=== PATIENT | female | born 1980 | race Caucasian/White ===

== ENCOUNTER 2021-04-23 00:15 | Day surgery (SDC) | payer OTHER, SELFPAY ==
[2021-04-14 14:19] VITALS: BMI 26.6
--- NOTE | 2021-04-22 10:08 | P.PNAN_ITS ---
Anes - Initial Pre Proc Eval Procedure: Operation Date: 04/23/21 10:00 Proposed Procedures p Bilateral Breast Reduction - Raymond Vera MD Date/Time: 04/22/21 10:09 Surgeon: Raymond Vera MD Pre Op Diagnosis: macromastia Patient Data Age: 40 Gender: F Height: 1.75 m Weight: 82 kg Allergies Allergy/AdvReac Type Severity Reaction Status Date / Time Sulfa (Sulfonamide Allergy Rash Verified 04/23/21 08:36 Antibiotics) Home Medications Medication Instructions Recorded Confirmed Type levothyroxine 50 mcg capsule 50 mcg PO DAILY 09/24/20 04/14/21 History docusate sodium 100 mg capsule 100 mg PO BID #14 cap 04/13/21 04/14/21 Rx hydrocodone 5 mg-acetaminophen 325 1 tablet PO Q6H PRN #15 tablet 04/13/21 04/14/21 Rx mg tablet ondansetron HCl 4 mg tablet 4 mg PO Q6H PRN #30 tablet 04/13/21 04/14/21 Rx Patient hx anesthesia problems: none Family hx anesthesia problems: none Results Review: All pre-operative results and documents have been reviewed as p art of the pre-operative evaluation. [facility] Past Medical History Medical History (Updated 04/22/21 @ 10:09 by Francisco Gann DO) Hypothyroidism Surgical History Surgical History (Updated 04/22/21 @ 10:09 by Francisco Gann DO) History of cholecystectomy History of knee surgery history of ACL and MCL repair History of lumpectomy History of partial hysterectomy Family History Family History Father Carcinoma of colon Social History Social History Smoking status: Never smoker Alcohol intake: never Substance use: never Living arrangements: with family Spiritual care concerns: No Anes - Eval Final PreProcedure Day of Procedure 04/22/21 10:09 Patient weight: overweight Heart: regular rate and rhythm Lungs: clear to auscultation and normal air movement Airway: Mallampati scale class II Neurological: alert and oriented Last oral intake: >/= 8 hours ASA classification: II Emergent: no Anesthetic plan: proceed Anesthesia type and monitoring: general LMA and standard monitoring Results Review: All pre-operative results and documents have been reviewed as part of the pre-operative evaluation. Informed Consent: The patient's anesthetic plan and its attendant risks and benefits were discussed with the patient/family/POA. Questions were solicited and answers provided to the satisfaction of the patient/family/POA.
[2021-04-23] VITALS (14 sets, daily range): BP systolic 109–136; BP diastolic 55–74; PULSE 62–89; RESP 10–20; TEMP 36.2–36.3; O2SAT 94–100
--- NOTE | 2021-04-23 09:01 | WPDHPUPDATE1 ---
History and Physical Update Update Date/Time: 04/23/21 09:01 History and Physical has been reviewed, including an updated exam of the patient. There are NO changes in the patient's condition. Risks, benefits, and alternatives have been discussed and questions answered. Patient agrees to proceed with procedure.
[2021-04-23] MEDS: LACTATED RINGERS 1,000 ML 30 ML IV CONT (09:10)
--- NOTE | 2021-04-23 09:16 | P.OP_ITS ---
Procedure Note - Detailed Date of Procedure 04/23/21 Pre-op Diagnosis macromastia Post-op Diagnosis same Procedure Performed Bilateral Reduction Mammaplasty Surgeon Raymond Vera MD Anesthesia general Findings Superior pedicle Inverted T Tissue removed: Right - 443 grams Left - 496 grams Description of Procedure She is here today for bilateral breast reduction. Previously and again today the risks, benefits, alternatives were discussed in extensive detail. I wanted her to be very realistic about the risks involved as well as expectations. We discussed aftercare and what to monitor for. She understands we can never guarantee final breast size and there will always be asymmetry. I was very upfront and honest about the risks of sensation change and even nipple loss (). Made sure answered all of her questions to her satisfaction today and consent was obtained. She was marked in the preoperative holding area with their verification. The patient was taken to the operating room placed supine on the operating table. Anesthesia was provided by anesthesiology. She was prepped and draped in a standard sterile fashion. A surgical time-out was taken. Stab incisions were made and I tumessed with a tumescent solution. I marked out the nipple-areolar complex at 42 mm. I then de-epithelialized the pedicle. The pedicle was well left well more than 2 cm in thickness. I then removed the inferior portion of the breast as well as the central keel to get shape based on preoperative planning. At this point copiously irrigated with saline solution and verified a strict hemostasis. I reapproximated the pillars using a 2-0 PDS. I tailor tacked the breast into place with margaret. She was placed in a sitting position. I verified the nipple-areolar complex position based on preoperative markings, intraoperative measurements, and ob servation which were in full agreement. This nipple-areolar complex was marked at 42 mm in size. I then placed supine and de-epithelialized this. Nipple- areolar complex was inset with 3-0 Monocryl. I closed IMF deep with 1 strattafix. I closed the vertical incision with 3-0 Monocryl in the IMF with 3- 0 stratafix. Then everything was closed using a running subcuticular 4-0 Monocryl followed by Steri-Strips. A dressing was placed followed by surgical bra. Patient was awoke and taken to PACU without difficulty. All instrument sponge counts were correct at the end of the case. Estimated Blood Loss 35 Drains No Packing No Pathology yes (Bilateral breast tissue) Complications No immediate complications Condition stable Disposition PACU
[2021-04-23] MEDS: SCOPOLAMINE 1.5 MG PATCH TRANSDERM (09:31)
[2021-04-23] MEDS: LACTATED RINGERS IRRIG 1,000 ML, LIDOCAINE HCL 1% LOCAL INJ 50 ML, EPINEPHrine HCL INJ ... INFILTRATE (09:35)
[2021-04-23] MEDS: ceFAZolin 2 GM/D5W 50 ML 2 GM/50 ML BAG IVPB (09:35)
[2021-04-23 09:39] LABS: Urine Cotinine NEGATIVE
[2021-04-23] MEDS: fentaNYL CITRATE INJ (*CRX) 100 MCG/2 ML VIAL 25 MCG IV PUSH ×8 (12:12→12:51)
[2021-04-23] MEDS: diphenhydrAMINE HCl INJ 50 MG/ML VIAL 25 MG IV PUSH (12:26)
[2021-04-23] MEDS: HYDROmorphone HCL INJ (*CRX) 1 MG/ML SYR 0.5 MG IV PUSH ×6 (12:58→13:50)
[2021-04-23] MEDS: oxyCODONE HCL (*CRX) 5 MG TAB IR PO (14:11)
== END 2021-04-23 14:53 | disposition home or self-care (01) ==
PROVIDERS: Visit Provider Surgery Plastic and Reconstructive Surgery
PROC: 0HBV0ZZ Excision of Bilateral Breast, Open Approach (ICD-10-PCS; CPT 19318; principal; 2021-04-23 10:00)
DX: N62 Hypertrophy of breast (principal); N60.32 Fibrosclerosis of left breast; N60.31 Fibrosclerosis of right breast; N60.42 Mammary duct ectasia of left breast; N60.41 Mammary duct ectasia of right breast; N60.82 Other benign mammary dysplasias of left breast; N60.81 Other benign mammary dysplasias of right breast; N60.22 Fibroadenosis of left breast; D24.2 Benign neoplasm of left breast; M54.9 Dorsalgia, unspecified; G89.29 Other chronic pain; M54.2 Cervicalgia; M25.511 Pain in right shoulder; M25.512 Pain in left shoulder; L30.4 Erythema intertrigo; N64.4 Mastodynia; E03.9 Hypothyroidism, unspecified
CPT/HCPCS: 19318; 80307; 88305; A9270; J0171; J0690; J1100; J1170; J1200; J2250; J2300; J2405; J2704; J3010; J7120